=== PATIENT | male | born 2005 | race Caucasian/White ===

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

== ENCOUNTER 2025-02-19 11:28 | Emergency (ER) | payer OTHER ==
[2025-02-19 14:02] VITALS: TEMP 97.8
[2025-02-19 14:03] VITALS: RESP 16; O2SAT 100
[2025-02-19 14:05] VITALS: BP 103/75; PULSE 87
[2025-02-19] MEDS ORDERED: MOTRIN 600 MG ONE (14:11)
[2025-02-19] MEDS: TYLENOL 325 MG PO STA ×2 (14:12→14:14)
[2025-02-19] MEDS ORDERED: TYLENOL 325 MG ONE (14:12)
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
[2025-02-19] MEDS: MOTRIN 600 MG PO ONE ×2 (14:13)
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
--- NOTE | 2025-02-19 14:40 | XRAY ---
Indication: Swelling following punching. Comparison: None 3 view left hand demonstrates mild soft tissue swelling centered around 1st and 2nd metacarpals. Incidental well-circumscribed punctate heterotopic ossification distal ulna. No other bony, articular, or soft tissue abnormalities.
[2025-02-19] MEDS ORDERED: KEFLEX 500 MG ONE (14:52)
[2025-02-19] MEDS ORDERED: PERCOCET TABLET 5/325MG ONE (14:52)
[2025-02-19] MEDS: PERCOCET TABLET 5/325MG PO STA (14:54)
[2025-02-19] MEDS: KEFLEX 500 MG PO ONE (14:54)
== END 2025-02-19 15:17 | disposition home or self-care (01) ==
LOC: ED 11:28
DX: L03.114 Cellulitis of left upper limb (principal); M79.641 Pain in right hand; M79.642 Pain in left hand; Z79.899 Other long term (current) drug therapy; Z72.0 Tobacco use

== ENCOUNTER 2025-02-20 17:48 | Emergency (ER) | payer OTHER ==
[2025-02-20 19:57] VITALS: TEMP 99.3
[2025-02-20] MEDS ORDERED: Zofran 4 MG/2 ML VIAL ONE (20:15)
[2025-02-20] MEDS ORDERED: MORPHINE SULFATE 4 MG INJ ONE (20:15)
[2025-02-20] MEDS: Zofran 4 MG/2 ML VIAL IV ONE (20:16)
[2025-02-20] MEDS ORDERED: CLINDAMYCIN-D5W 900 MG/50 ML*** 900 MG/50 ML BAG IV ONE (20:16)
[2025-02-20] MEDS: MORPHINE SULFATE 4 MG INJ IV ONE (20:17)
[2025-02-20] MEDS: CLINDAMYCIN-D5W 900 MG/50 ML*** 900 MG/50 ML BAG IV STA (20:17)
[2025-02-20 20:20] LABS: BASOPHIL % 0.3 % (0.2-1.2); Basophil (Absolute #) 0.05 x10^3/uL (0.01-0.08); Eosinophil (Absolute #) 0.10 x10^3/uL (0.04-0.54); Hematocrit 40.3 % (40.1-51.0); Hemoglobin 13.6 g/dL (13.7-17.5); IMMATURE GRAN # 0.08 x10^3u/L (0.001-0.031); IMMATURE GRAN % 0.5 % (0.001-0.429); Lymphocyte (Absolute #) 2.05 x10^3/uL (1.32-3.57); Mean Corpuscular Hemoglobin 29.4 pg (25.7-32.2); Mean Corpuscular Hgb Concent. 33.7 g/dL (32.3-36.5); Monocyte (Absolute #) 1.36 x10^3/uL (0.30-0.82); NUCLEATED RBC # 0.00 x10^3u/L (0.00-0.012); NUCLEATED RBC % 0.0 % (0.00-0.2); Platelet Count 341 x10^3/uL (163-337); Red Blood Count 4.62 x10^6/uL (4.63-6.08); White Blood Count 16.4 x10^3/uL (4.23-9.07)
--- NOTE | 2025-02-20 20:38 | ERPHSYRPT ---
- History of Present Illness Time Seen by Provider: 02/20/25 20:10 Source: patient Exam Limitations: no limitations Patient Subjective Stated Complaint: pt states the swelling and redness is increasing his hand Triage Nursing Assessment: pt ambulated into the er; pt is aggressive, restless, yelling out; pt is axo x3; c/o swelling, redness, and pain to left hand; pt states 10/10; strong left radial pulse; swelling and redness present to left dorsal hand; no respiratory distress present; hypertensive Physician History: 19-year-old male presents to the emergency room with left hand worsening swelling and redness patient reports he was seen here yesterday and was started on oral antibiotics he reports his last dose was 8 AM this morning he is having trouble opening the actual bottle patient reports he lives in a unsanitary place but shared living patient denies MRSA history denies any IV drug abuse history patient presents today for worsening hand cellulitis and outpatient treatment failure Occurred: days ago (3) Method of Injury: other Quality: constant Extremities Pain Location: hand: bilateral (swelling) Modifying Factors: Improves With: nothing Allergies/Adverse Reactions: Penicillins Allergy (Verified 02/20/25 19:47) Hx Tetanus, Diphtheria Vaccination/Date Given: Yes Hx Influenza Vaccination/Date Given: No Hx Pneumococcal Vaccination/Date Given: No Travel Risk - International Travel Have you traveled outside of the country in past 3 weeks: No - Emerging Infectious Disease Are you exhibiting symptoms associated with any current EIDs: No - Review of Systems Constitutional: No Fever, No Chills Eyes: No Symptoms Ears, Nose, & Throat: No Symptoms Respiratory: No Cough, No Dyspnea Cardiac: No Chest Pain, No Edema, No Syncope Abdominal/Gastrointestinal: No Abdominal Pain, No Nausea, No Vomiting, No Diarrhea Genitourinary Symptoms: No Dysuria Musculoskeletal: Joint Swelling, No Back Pain, No Neck Pain Skin: No Rash Neurological: No Dizziness, No Focal Weakness, No Sensory Changes Psychological: No Symptoms Endocrine: No Symptoms All Other Systems: Reviewed and Negative - Past Medical History Pertinent Past Medical History: Yes Neurological History: No Pertinent History ENT History: No Pertinent History Cardiac History: No Pertinent History Respiratory History: No Pertinent History Endocrine Medical History: No Pertinent History Musculoskeletal History: No Pertinent History GI Medical History: No Pertinent History History: No Pertinent History Psycho-Social History: Depression, Other Male Reproductive Disorders: No Pertinent History Other Medical History: odd, adhd - Past Surgical History Past Surgical History: No Neuro Surgical History: No Pertinent History Cardiac: No Pertinent History Respiratory: No Pertinent History Gastrointestinal: No Pertinent History Genitourinary: No Pertinent History Musculoskeletal: No Pertinent History Male Surgical History: No Pertinent History Significant Family History: no pertinent family hx - Social History Smoking Status: Current every day smoker Exposure to second hand smoke: Yes Drug Use: marijuana - Social Determinants of Health Will the patient participate in the screening: Yes Do you worry about a steady place to live?: No Do you have any problems with any of the following?: No known problems In the past 12 months,have you had to go without utilities?: No Transportation Issues: No Has anyone in your support network made you feel unsafe?: No Have you or anyone in your house had to go w/o enough food: No - Nursing Vital Signs Nursing Vital Signs: Initial Vital Signs Temperature 99.3 F 02/20/25 19:48 Pulse Rate 99 H 02/20/25 19:48 Respiratory Rate 18 02/20/25 19:48 Blood Pressure 144/75 02/20/25 19:48 O2 Sat by Pulse Oximetry 100 02/20/25 19:48 Pain Scale Pain Intensity 10 - Physical Exam General Appearance: alert Eyes, Ears, Nose, Throat Exam: moist mucous membranes Neck Exam: non-tender, supple Cardiovascular/Respiratory Exam: chest non-tender, normal breath sounds, regular rate/rhythm, no respiratory distress Abdominal Exam: non-tender, No guarding Back Exam: normal inspection, No vertebral tenderness Hand Exam: soft tissue tenderness, swelling (concern for worsening hand cellulitis) Neuro/Tendon Exam: normal sensation, normal motor functions Mental Status Exam: alert, oriented x 3, cooperative Skin Exam: normal color, warm, dry SpO2: 100 - Course Nursing assessment & vital signs reviewed: Yes Ordered Tests: Active Orders 24 hr Category Date Time Status Curtain Inspector STAT Care 02/20/25 20:10 Active IV Insertion STAT Care 02/20/25 20:07 Active IV Insertion STAT Care 02/20/25 20:10 Active Pulse Oximetry (ED) STAT Care 02/20/25 20:10 Active UPPER EXTREMITY W/O CONTRAST [CT] Stat Exams 02/20/25 21:24 Taken BLOOD CULTURE Stat Lab 02/20/25 20:14 Received CBC W DIFF Stat Lab 02/20/25 20:14 Completed CMP Stat Lab 02/20/25 20:14 Completed Erythrocyte Sedimentation Rate Stat Lab 02/20/25 20:14 Completed Lactic Acid Stat Lab 02/20/25 20:25 Completed PROCALCITONIN Stat Lab 02/20/25 20:14 Completed Medication Summary Generic Name Dose Route Start Last Admin Trade Name Bridger PRN Reason Stop Dose Admin Vancomycin HCl 1 gm/ Sodium 250 mls @ 166.667 mls/hr 02/20/25 21:30 02/20/25 21:34 Chloride IV 03/22/25 21:29 Not Given Q12H ULISES Discontinued Medications Generic Name Dose Route Start Last Admin Trade Name Bridger PRN Reason Stop Dose Admin Hydromorphone HCl 0.5 mg 02/20/25 21:17 02/20/25 21:24 Hydromorphone 1 Mg/1ml Inj IV 02/20/25 21:18 0.5 mg STAT ONE Administration Hydromorphone HCl Confirm 02/20/25 21:23 Hydromorphone 1 Mg/1ml Inj Administered 02/20/25 21:24 Dose 1 mg .ROUTE .STK-MED ONE Hydromorphone HCl 0.5 mg 02/20/25 22:42 02/20/25 22:49 Hydromorphone 1 Mg/1ml Inj IV 02/20/25 22:43 0.5 mg STAT ONE Administration Hydromorphone HCl Confirm 02/20/25 22:48 Hydromorphone 1 Mg/1ml Inj Administered 02/20/25 22:49 Dose 1 mg .ROUTE .STK-MED ONE Sodium Chloride 1,000 mls @ 999 mls/hr 02/20/25 20:07 02/20/25 21:22 Sodium Chloride 0.9% 1000 Ml IV 02/20/25 21:07 Infused .Q1H1M STA Infusion Clindamycin HCl/Dextrose 900 mg in 50 mls @ 100 mls/hr 02/20/25 20:09 02/20/25 20:47 Clindamycin-D5w 900 Mg/50 Ml IV 02/20/25 20:38 Infused STAT STA Infusion Sodium Chloride Confirm 02/20/25 20:16 Sodium Chloride 0.9% 1000 Ml Administered 02/20/25 20:17 Dose 1,000 mls @ ud .ROUTE .STK-MED ONE Clindamycin HCl/Dextrose Confirm 02/20/25 20:16 Clindamycin-D5w 900 Mg/50 Ml Administered 02/20/25 20:17 Dose 900 mg in 50 mls @ ud IV .STK-MED ONE Vancomycin HCl 1 gm in 200 mls @ 125 mls/hr 02/20/25 21:32 02/20/25 23:16 Vancomycin 1 Gram/200 Ml Bag IV 02/20/25 23:07 Infused STAT ONE Infusion Vancomycin HCl Confirm 02/20/25 21:31 Vancomycin 1 Gram/200 Ml Bag Administered 02/20/25 21:32 Dose 1 gm in 200 mls @ ud IV .STK-MED ONE Morphine Sulfate 4 mg 02/20/25 20:07 02/20/25 20:17 Morphine Sulfate 4 Mg/Ml Injection IV 02/20/25 20:08 4 mg STAT ONE Administration Morphine Sulfate Confirm 02/20/25 20:15 Morphine Sulfate 4 Mg/Ml Injection Administered 02/20/25 20:16 Dose 4 mg .ROUTE .STK-MED ONE Ondansetron HCl 4 mg 02/20/25 20:07 02/20/25 20:16 Ondansetron Hcl 4 Mg/2 Ml Vial IV 02/20/25 20:08 4 mg STAT ONE Administration Ondansetron HCl Confirm 02/20/25 20:15 Ondansetron Hcl 4 Mg/2 Ml Vial Administered 02/20/25 20:16 Dose 4 mg .ROUTE .STK-MED ONE Lab/Rad Data: Laboratory Result Diagrams 02/20/25 20:14 02/20/25 20:14 Laboratory Results 02/20/25 02/20/25 02/20/25 Range/Units 20:25 20:14 20:14 WBC (4.23-9.07) x10^3/uL RBC (4.63-6.08) x10^6/uL Hgb (13.7-17.5) g/dL Hct (40.1-51.0) % MCV (79.0-92.2) fL MCH (25.7-32.2) pg MCHC (32.3-36.5) g/dL RDW (11.6-14.4) % Plt Count (163-337) x10^3/uL MPV (9.4-12.4) fL Gran % (34.0-67.9) % Immature Gran % (Auto) (0.001-0.429) % Nucleat RBC Rel Count (0.00-0.2) % Eos # (Auto) (0.04-0.54) x10^3/uL Immature Gran # (Auto) (0.001-0.031) x10^3u/L Absolute Lymphs (auto) (1.32-3.57) x10^3/uL Absolute Monos (auto) (0.30-0.82) x10^3/uL Absolute Nucleated RBC (0.00-0.012) x10^3u/L Lymphocytes % (21.8-53.1) % Monocytes % (5.3-12.2) % Eosinophils % (0.8-7.0) % Basophils % (0.2-1.2) % Absolute Granulocytes (1.78-5.38) x10^3/uL Basophils # (0.01-0.08) x10^3/uL ESR 28 H (0-15) mm/hr Sodium 134 L (135-145) mmol/L Potassium 3.8 (3.5-5.1) mmol/L Chloride 98 (98-107) mmol/L Carbon Dioxide 25 (22-30) mmol/L Anion Gap 14.1 (5-15) MEQ/L BUN 9 (9-20) mg/dL Creatinine 0.80 (0.66-1.25) mg/dL Estimated GFR 130.7 ML/MIN Glucose 108 H (74-106) mg/dL Lactic Acid 1.1 (0.4-2.0) Calcium 9.4 (8.4-10.2) mg/dL Total Bilirubin 0.80 (0.2-1.3) mg/dL AST 28 (17-59) U/L ALT 22 (0-50) U/L Alkaline Phosphatase 67 (38-126) U/L Serum Total Protein 7.4 (6.3-8.2) g/dL Albumin 4.2 (3.5-5.0) g/dL Procalcitonin (0.030-0.080) ng/mL 02/20/25 02/20/25 Range/Units 20:14 20:14 WBC 16.4 H (4.23-9.07) x10^3/uL RBC 4.62 L (4.63-6.08) x10^6/uL Hgb 13.6 L (13.7-17.5) g/dL Hct 40.3 (40.1-51.0) % MCV 87.2 (79.0-92.2) fL MCH 29.4 (25.7-32.2) pg MCHC 33.7 (32.3-36.5) g/dL RDW 12.4 (11.6-14.4) % Plt Count 341 H (163-337) x10^3/uL MPV 8.9 L (9.4-12.4) fL Gran % 77.8 H (34.0-67.9) % Immature Gran % (Auto) 0.5 H (0.001-0.429) % Nucleat RBC Rel Count 0.0 (0.00-0.2) % Eos # (Auto) 0.10 (0.04-0.54) x10^3/uL Immature Gran # (Auto) 0.08 H (0.001-0.031) x10^3u/L Absolute Lymphs (auto) 2.05 (1.32-3.57) x10^3/uL Absolute Monos (auto) 1.36 H (0.30-0.82) x10^3/uL Absolute Nucleated RBC 0.00 (0.00-0.012) x10^3u/L Lymphocytes % 12.5 L (21.8-53.1) % Monocytes % 8.3 (5.3-12.2) % Eosinophils % 0.6 L (0.8-7.0) % Basophils % 0.3 (0.2-1.2) % Absolute Granulocytes 12.72 H (1.78-5.38) x10^3/uL Basophils # 0.05 (0.01-0.08) x10^3/uL ESR (0-15) mm/hr Sodium (135-145) mmol/L Potassium (3.5-5.1) mmol/L Chloride (98-107) mmol/L Carbon Dioxide (22-30) mmol/L Anion Gap (5-15) MEQ/L BUN (9-20) mg/dL Creatinine (0.66-1.25) mg/dL Estimated GFR ML/MIN Glucose (74-106) mg/dL Lactic Acid (0.4-2.0) Calcium (8.4-10.2) mg/dL Total Bilirubin (0.2-1.3) mg/dL AST (17-59) U/L ALT (0-50) U/L Alkaline Phosphatase (38-126) U/L Serum Total Protein (6.3-8.2) g/dL Albumin (3.5-5.0) g/dL Procalcitonin 0.070 (0.030-0.080) ng/mL - Progress Progress Note: 02/20/25 21:39 Patient has an elevated white count of 16,000 was started on Vanco and clindamycin patient has elevated ESR blood culture has been sent patient to give morphine and Zofran for pain control patient will need to be transferred to a hospital with a hand specialist as patient has failure of outpatient treatment of hand cellulitis 02/20/25 22:46 CT findings show soft tissue swelling greatest at the 1st and 2nd metacarpals with punctate heterotopic calcification in the distal ulna patient also has a 1.3 x 2.2 cm subcutaneous palmar hyperdensity fluid at the first MCP either posttraumatic hematoma versus inflammatory versus infectious 02/20/25 22:47 We have called [facility] and they do not have hand coverage at this moment so we will try aidee Frankel 02/20/25 23:22 Discussed with aidee Nondenominationalkishan Sharma they report that they do not take care of hand especially in cases that might need I&D or debridement 02/20/25 23:39 Discussed the case with Dr. Paez who agrees with the IV antibiotics he reports that he rarely has to intervene surgically but he reports should be happy to see the patient and to admit to the hospital service 02/21/25 00:01 d/w Dr. Joseph hospitalist and Dr. Paez from hand surgery who accepts the patient for hand cellulitis has failed outpatient therapy now receiving IV antibiotics with an elevated white count and leukocytosis 02/21/25 00:40 Awaiting for bed at [facility] - Departure Departure Disposition: Transfer Clinical Impression: Cellulitis of hand, Failure of outpatient treatment Leukocytosis Qualifiers: Leukocytosis type: unspecified Qualified Code(s): D72.829 - Elevated white blood cell count, unspecified Condition: Stable Critical Care Time: No Referrals: DOCTOR,NO FAMILY [Primary Care Provider, UNKNOWN] - Follow up/PCP as directed
[2025-02-20] MEDS ORDERED: Hydromorphone 1 mg/ml Injection ONE ×2 (21:23→22:48)
[2025-02-20] MEDS: Hydromorphone 1 mg/ml Injection IV ONE ×2 (21:24→22:49)
[2025-02-20] MEDS ORDERED: VANCOMYCIN 1 GRAM/200 ML BAG 1 GM/200 ML PIGGYBACK IV ONE (21:31)
[2025-02-20] MEDS: VANCOMYCIN 1 GRAM/200 ML BAG 1 GM/200 ML PIGGYBACK IV ONE (21:33)
[2025-02-20] MEDS: VANCOCIN INJECTION*** 1 GM in Sodium Chloride 0.9% 250 ML 250 ML IV SCH (21:34)
[2025-02-20 22:21] LABS: Calcium 9.4 mg/dL (8.4-10.2); Carbon Dioxide 25.0 mmol/L (22-30); Creatinine 1 0.8 mg/dL (0.66-1.25); EST GLOMERULAR FILTRATION RATE 130.7 ML/MIN; Glucose 108.0 mg/dL (74-106); Potassium 3.8 mmol/L (3.5-5.1); SGOT/AST 28.0 U/L (17-59); SGPT/ALT 22.0 U/L (0-50); Total Protein 7.4 g/dL (6.3-8.2)
[2025-02-21 00:11] VITALS: RESP 20
[2025-02-21 02:02] VITALS: BP 128/82; PULSE 104; O2SAT 97
--- NOTE | 2025-02-21 08:46 | XRAY ---
Indication: Cellulitis. Punching injury reported on radiograph 1 day earlier. Multiple contiguous axial images obtained through the left hand without contrast. Sagittal and coronal reformatted images obtained. There is mild diffuse subcutaneous soft tissue swelling/edema, greatest around 1/2 metacarpals. Anterior hand demonstrates 1.3 x 2.2 x 3.1 cm subcutaneous hypodensity/fluid just anterior to 1st MCP either posttraumatic hematoma versus inflammatory/infectious in etiology. Lack of IV contrast precludes further characterization. No acute fracture, dislocation, suspicious bony lesions, or osseous destructive process. Distal ulna demonstrates punctate heterotopic ossification either degenerative versus old injury. Impression: Diffuse subcutaneous soft tissue swelling/edema. Small anterior subcutaneous hypodensity/fluid adjacent to 1st MCP either posttraumatic versus inflammatory/infectious. Correlate clinically.
== END 2025-02-21 02:23 | disposition home or self-care (01) ==
LOC: ED 17:48
DX: L03.113 Cellulitis of right upper limb (principal); D72.829 Elevated white blood cell count, unspecified; Z72.0 Tobacco use